=== PATIENT | male | born 1950 | race Caucasian/White ===

== ENCOUNTER → 2017-05-26 | Day surgery (SDC) | payer MEDICARE ==
[~2017-05-26] VITALS: Ht 182.9 cm; Wt 86.0 kg
[~2017-05-26] MED LIST: 0.9% Sodium Chloride 1,000 ML IV PRN; LOVA20TA PO; Sodium Chloride LOK Flush 10 mL Syringe IV PRN; fentaNYL-PF 50 mCg/mL 2 mL Inj IVPUSH PRN
[2017-05-26 12:29] VITALS: BP 130/85; PULSE 72; RESP 14; O2SAT 94
[2017-05-26 13:20] VITALS: BP 110/63; PULSE 68; RESP 16; O2SAT 96
[2017-05-26 13:30] VITALS: BP 104/67; PULSE 69; RESP 16; O2SAT 97
[2017-05-26 13:42] VITALS: BP 106/63; PULSE 64; RESP 16; O2SAT 97
--- NOTE | 2017-05-26 14:25 | ENDO ---
[address] [address] ENDOSCOPY PROCEDURE PATIENT: HUSAM WERNER : 1950 MR#: [id number] ADMIT: 05/26/2017 JOB ID: [id number] CORRECTED REPORT: DATE: 05/26/2017 PROCEDURE: Colonoscopy. INDICATION: Screening. Patient's ASA classification is two. Mallampati score is two. MEDICATIONS: Versed 5 mg and fentanyl 115 mcg. INSTRUMENT USED: PCF H 180 AL PREPARATION QUALITY: Fair. PROCEDURE DETAILS: After informed consent was obtained, the patient was brought into the GI suite, where he was placed on oxygen via nasal cannula and monitored with continuous pulse oximeter, telemetry, and blood pressure monitoring. A time-out was performed, then he was placed in the left lateral decubitus position and medications were administered for sedation. A digital rectal exam was performed, which was unremarkable. The colonoscope was then inserted into the rectum and advanced under direct visualization to the cecum, which was identified by the presence of the ileocecal valve and the appendiceal orifice. Once the cecum was reached, the colonoscope was withdrawn back into the rectum as the mucosa and lumen were examined. In the rectum, retroflexion was performed. Following retroflexion, the remaining air in the rectum was suctioned and the procedure was completed. FINDINGS: 1. In the ascending colon, there was a diminutive polyp that was removed with cold biopsy forceps. 2. In the transverse colon, there was a diminutive polyp that was removed with cold biopsy forceps. 3. In the descending colon, there was a 3-4 mm sessile polyp that was removed with a cold snare. IMPRESSION: 1. Ascending colon polyp. 2. Transverse colon polyp. 3. Descending polyp. RECOMMENDATIONS: Repeat colonoscopy pending polyp pathology results. COMPLICATIONS: None. ESTIMATED BLOOD LOSS: Less than 5 mL. Corrected by GS 06/01/17 at 1:51pm DOS.
--- NOTE | 2017-05-30 17:20 | PATH ---
SURGICAL PATHOLOGY Attending Physician:Portia Frausto CASE STATUS: Signed Out PATIENT NAME: HUSAM WERNER PID: [id number] : 1950 DATE COLLECTED:05/26/2017 22:05 SPECIMEN: 1: Colon, Polyp 2: Colon, Polyp 3: Colon, Polyp CLINICAL HISTORY: 1). ASCENDING COLON POLYP 2). TRANSVERSE COLON POLYP 3). DESCENDING POLYP FINAL DIAGNOSIS: 1.ASCENDING COLON POLYP, BIOPSY: TUBULAR ADENOMA. 2.TRANSVERSE COLON POLYP, BIOPSY: TUBULAR ADENOMA. 3.DESCENDING COLON POLYP, BIOPSY: TUBULAR ADENOMA. ICD10 D12.6 GROSS DESCRIPTION: Received three formalin-filled containers, each labeled with the patient' s name. 1. Received in formalin, labeled with the patient' s name and "transverse polyp", are five fragments of saenz, soft tissue ranging from 0.1 x 0.1 x 0.1 cm to 0.4 x 0.2 x 0.1 cm. The fragments are totally submitted in cassette 1A. 2. Received in formalin, labeled with the patient' s name and "ascending polyp", is one fragment of saenz, soft tissue measuring 0.4 x 0.2 x 0.2 cm. The fragment is totally submitted in cassette 2A. 3. Received in formalin, labeled with the patient' s name and "descending polyp", are two fragments of saenz, soft tissue ranging from 0.2 x 0.1 x 0.1 cm to 0.2 x 0.2 x 0.1 cm. The fragments are totally submitted in cassette 3A. [id number]) MICRO DESCRIPTION: See diagnosis. ICD-9 CODES: CPT CODES: 1: 34636 2: 43080 3: 76418 Electronically Signed Out Julio Chakraborty MD, Ph.D. [facility] Pathology [facility] [address], [place] [address] Technical component performed at [facility], [address], [place], [address]
== END | disposition home or self-care (01) ==
LOC: END 00:58
PROVIDERS: ATTEND Internal Medicine Gastroenterology
DX: Z12.11 Encounter for screening for malignant neoplasm of colon (principal); D12.2 Benign neoplasm of ascending colon; D12.3 Benign neoplasm of transverse colon; D12.4 Benign neoplasm of descending colon; E78.2 Mixed hyperlipidemia
CPT/HCPCS: 45380; 45385; 88305; 99153; G0500; J2250; J3010; J7030